=== PATIENT | female | born 1985 | race Caucasian/White ===

== ENCOUNTER 2019-03-12 14:54 | Emergency (ER) | payer OTHER ==
[~2019-03-12] VITALS: Ht 170.2 cm; Wt 77.1 kg
[2019-03-12] MEDS ORDERED: HYDROCHLOROTH12.5 M1 (15:18)
[2019-03-12] MEDS ORDERED: AMLODIPINE BESYL5 MG (15:19)
== END 2019-03-12 17:56 | disposition home or self-care (01) ==
LOC: ER 14:54
DX: H66.93 Otitis media, unspecified, bilateral (principal)